=== PATIENT | female | born 1980 | race Caucasian/White ===

== ENCOUNTER 2025-04-02 13:28 | Inpatient (IN) | payer OTHER, SELFPAY ==
[2025-04-02] VITALS (29 sets, daily range): BP systolic 90–113; BP diastolic 56–78; BMI 25.9
[2025-04-02 09:07] LABS: Hematocrit 38.1 % (37.0-47.0); Hemoglobin 12.7 g/dL (12.0-16.0); Mean Corp Hgb Conc. 33.3 g/dL (33.0-37.0); Mean Corpuscular Volume 82.8 fL (81.0-99.0); Nucleated Red Blood Cells % 0 %; Platelet Count 225 10^3/uL (130-400); Red Cell Dist. Width 13.2 % (11.5-14.5)
[2025-04-02 09:27] LABS: ALT (SGPT) 17 U/L (0-35); AST (SGOT) 19 U/L (14-36); Albumin 4.7 g/dl (3.5-5.0); Alkaline Phosphatase 56 U/L (38-126); Blood Urea Nitrogen 10 mg/dl (7-17); Calcium 9.6 mg/dl (8.4-10.2); Carbon Dioxide 23 mmol/L (22-30); Chloride 106 mmol/L (98-107); Glucose 96 mg/dl (70-99); Potassium 4.0 mmol/L (3.5-5.1); Sodium 139 mmol/L (135-145); Total Protein 7.7 g/dl (6.3-8.2); eGFR > 60.00
--- NOTE | 2025-04-02 09:38 | ED.GENMED ---
History of Present Illness
<Casie Pinto PA-C - Last Filed: 04/02/25 15:05>
General
Chief Complaint: Throat Problem
Source: patient
Exam Limitations: none
Time Seen by Provider: 04/02/25 09:02
Nursing documentation reviewed up to this point in time: agreed with
History of Present Illness
History of Present Illness:
see MDM
Phy Exam
<Casie Pinto PA-C - Last Filed: 04/02/25 15:05>
Physical Exam
Physical Exam:
see MDM
Course
<Casie Pinto PA-C - Last Filed: 04/02/25 15:05>
Orders/Labs/Results
Orders:
Orders
04/02/25 08:52
Test Result ONCE
04/02/25 08:56
Complete Blood Count/With Diff Urgent
Comprehensive Metabolic Panel Urgent
HCG, Serum Qualitative Screen Urgent
Comment: Notify provider if positive test present
04/02/25 09:25
CT Neck With Iv Contrast Urgent
Comment: RPA ? VS EPIGLOTTITIS?
Reason For Exam: R neck pain with swallowing, stridorous breathing;
0.9% Sodium Chloride 1000 ml [Nss] 1,000 ml IV BOLUS
Dexamethasone Sod Phosphate [Decadron] 10 mg IV NOW STA
Ketorolac [Toradol] 30 mg IV NOW STA
Morphine Sulfate 2 mg IV NOW STA
Ondansetron Injectable [Zofran] 4 mg IV NOW STA
04/02/25 10:33
Monotest Urgent
04/02/25 11:49
COVID-19 Antigen Urgent
Source: Nasal Swab
Influenza A+B Rapid Molecular Urgent
MARCELO Source: Nasal Swab
Specimen Description:
04/02/25 11:57
Morphine Sulfate 2 mg IV NOW STA
04/02/25 12:05
Ampicillin/Sulbactam 3 G [Unasyn] 3 gm 0.9% Sodium Chloride 100 ml [Nss] 100 ml IV NOW
04/02/25 12:53
Admit/Transfer Patient As Directed
Co-Sign Provider:
Level of Care: Inpatient admission
Assign to:: ICU
Physician / Group: Leroy Glass
Diagnosis: acute right epiglottitis
Reason for Hospitalization: acute right epiglottitis
Expected length of stay greater than two midnights?: Yes
ELOS- Estimated Length of Stay in days: 3
I certify the patient meets the requirements for IP care: Yes
04/02/25 12:54
Code Status As Directed
Resuscitation Status: Full Code
PRN Pain Medication Management As Directed
May give lesser potent ordered pain med per pt: Yes
preference::
Protocol:: Medication orders for pain may be administered in a
manner that supports deferring to patient preference
when the pt is:
- Requesting an ordered lesser potent pain medication.
Least to most potent pain medications are defined
as: acetaminophen < NSAID < tramadol < opioids
(morphine, oxycodone, hydromorphone).
- Requesting a lesser dose of the same medication IF
ORDERED.
- Requesting a less intrusive route of administration
if both routes are prescribed by the provider (PO <
IV).
04/02/25 13:04
Racepinephrine [Vaponefrin Nebs] 0.5 ml INH R NOW STA
04/02/25 Dinner
NPO
Allow oral meds: Yes
Allow clear liquids: No
NPO with Ice Chips: Yes
0.9% Sodium Chloride 1000 ml [Nss] 1,000 ml IV 100 mls/hr
Acetaminophen [Tylenol] 650 mg PO Q4HPRN PRN
Ampicillin/Sulbactam 3 G [Unasyn] 3 gm 0.9% Sodium Chloride 100 ml [Nss] 100 ml IV Q12H
Dexamethasone Sod Phosphate [Decadron] 8 mg IV Q8H
Morphine Sulfate 2 mg IV Q4HPRN PRN
Ondansetron Injectable [Zofran] 4 mg IV Q6HPRN PRN
04/02/25 15:00
Activity As Directed
Activity Level: Ambulate
Vital Signs As Directed
Frequency: Per unit guidelines
Weight As Directed
Frequency: Once
Comment: on admission
DX Deep Vein Thrombosis Video Routine
04/02/25 16:00
Heparin 5,000 units SC Q8
Racepinephrine [Vaponefrin Nebs] 0.5 ml INH Q8
04/03/25 06:00
Complete Blood Count/No Diff IN AM
Abnormal Lab Results
04/02/25
08:56
MPV 10.8 H fL
(7.4-10.4)
Absolute Lymphs (auto) 0.7 L 10^3/uL
(1.2-3.4)
Neutrophils % 77.8 H %
(42.2-75.2)
Lymphocytes % 11.9 L %
(20.5-51.1)
Monocytes % 9.4 H %
(1.7-9.3)
04/02/25 08:56
04/02/25 08:56
Vital Signs
Initial and Last Documented VS:
Initial Vital Signs
Temp Pulse Resp BP Pulse Ox
37.1 C 102 18 111/77 98
04/02/25 08:46 04/02/25 08:46 04/02/25 08:46 04/02/25 08:46 04/02/25 08:46
Last Documented Vital Signs
Temp Pulse Resp BP Pulse Ox
37.7 C 82 16 108/64 96
04/02/25 09:25 04/02/25 12:11 04/02/25 12:11 04/02/25 14:00 04/02/25 14:30
<Raheel Robles MD - Last Filed: 04/02/25 12:11>
Orders/Labs/Results
Orders:
Orders
04/02/25 08:52
Test Result ONCE
04/02/25 08:56
Complete Blood Count/With Diff Urgent
Comprehensive Metabolic Panel Urgent
HCG, Serum Qualitative Screen Urgent
Comment: Notify provider if positive test present
04/02/25 09:25
CT Neck With Iv Contrast Urgent
Comment: RPA ? VS EPIGLOTTITIS?
Reason For Exam: R neck pain with swallowing, stridorous breathing;
0.9% Sodium Chloride 1000 ml [Nss] 1,000 ml IV BOLUS
Dexamethasone Sod Phosphate [Decadron] 10 mg IV NOW STA
Ketorolac [Toradol] 30 mg IV NOW STA
Morphine Sulfate 2 mg IV NOW STA
Ondansetron Injectable [Zofran] 4 mg IV NOW STA
04/02/25 10:33
Monotest Urgent
04/02/25 11:49
COVID-19 Antigen Urgent
Source: Nasal Swab
Influenza A+B Rapid Molecular Urgent
MARCELO Source: Nasal Swab
Specimen Description:
04/02/25 11:57
Morphine Sulfate 2 mg IV NOW STA
04/02/25 12:05
Ampicillin/Sulbactam 3 G [Unasyn] 3 gm 0.9% Sodium Chloride 100 ml [Nss] 100 ml IV NOW
04/02/25 12:53
Admit/Transfer Patient As Directed
Co-Sign Provider:
Level of Care: Inpatient admission
Assign to:: ICU
Physician / Group: Leroy Glass
Diagnosis: acute right epiglottitis
Reason for Hospitalization: acute right epiglottitis
Expected length of stay greater than two midnights?: Yes
ELOS- Estimated Length of Stay in days: 3
I certify the patient meets the requirements for IP care: Yes
04/02/25 12:54
Code Status As Directed
Resuscitation Status: Full Code
PRN Pain Medication Management As Directed
May give lesser potent ordered pain med per pt: Yes
preference::
Protocol:: Medication orders for pain may be administered in a
manner that supports deferring to patient preference
when the pt is:
- Requesting an ordered lesser potent pain medication.
Least to most potent pain medications are defined
as: acetaminophen < NSAID < tramadol < opioids
(morphine, oxycodone, hydromorphone).
- Requesting a lesser dose of the same medication IF
ORDERED.
- Requesting a less intrusive route of administration
if both routes are prescribed by the provider (PO <
IV).
04/02/25 13:04
Racepinephrine [Vaponefrin Nebs] 0.5 ml INH R NOW STA
04/02/25 Dinner
NPO
Allow oral meds: Yes
Allow clear liquids: No
NPO with Ice Chips: Yes
0.9% Sodium Chloride 1000 ml [Nss] 1,000 ml IV 100 mls/hr
Acetaminophen [Tylenol] 650 mg PO Q4HPRN PRN
Ampicillin/Sulbactam 3 G [Unasyn] 3 gm 0.9% Sodium Chloride 100 ml [Nss] 100 ml IV Q12H
Dexamethasone Sod Phosphate [Decadron] 8 mg IV Q8H
Morphine Sulfate 2 mg IV Q4HPRN PRN
Ondansetron Injectable [Zofran] 4 mg IV Q6HPRN PRN
04/02/25 15:00
Activity As Directed
Activity Level: Ambulate
Vital Signs As Directed
Frequency: Per unit guidelines
Weight As Directed
Frequency: Once
Comment: on admission
DX Deep Vein Thrombosis Video Routine
04/02/25 16:00
Heparin 5,000 units SC Q8
Racepinephrine [Vaponefrin Nebs] 0.5 ml INH Q8
04/03/25 06:00
Complete Blood Count/No Diff IN AM
Abnormal Lab Results
04/02/25
08:56
MPV 10.8 H fL
(7.4-10.4)
Absolute Lymphs (auto) 0.7 L 10^3/uL
(1.2-3.4)
Neutrophils % 77.8 H %
(42.2-75.2)
Lymphocytes % 11.9 L %
(20.5-51.1)
Monocytes % 9.4 H %
(1.7-9.3)
04/02/25 08:56
04/02/25 08:56
Vital Signs
Initial and Last Documented VS:
Initial Vital Signs
Temp Pulse Resp BP Pulse Ox
37.1 C 102 18 111/77 98
04/02/25 08:46 04/02/25 08:46 04/02/25 08:46 04/02/25 08:46 04/02/25 08:46
Last Documented Vital Signs
Temp Pulse Resp BP Pulse Ox
37.7 C 82 16 108/64 96
04/02/25 09:25 04/02/25 12:11 04/02/25 12:11 04/02/25 14:00 04/02/25 14:30
<Casie Pinto PA-C - Last Filed: 04/02/25 15:05>
MDM/Problems Addressed
Differential Diagnosis Includes:
see MDM
MDM/Problems Addressed:
Note:
CHIEF COMPLAINT(S)
Sore throat and discomfort.
HISTORY OF PRESENT ILLNESS
The patient is a 44-year-old female who reports experiencing a sore throat and discomfort x 4 days, with worsening symptoms the following 2 days. yesterday She sought treatment at an urgent care facility where she tested negative for covid and
strep. they gave her augmentin and she has had 2 doses without improvement
today her pain is worse, specifically R side of her throat with swallowing and can barely swallow water
pain with R neck movement and palpation and feels her glands are swollen
The patient has not been vaccinated against the flu in recent years.
The patient explains she has been managing the symptoms with [id number] medications such as Tylenol and ibuprofen but has experienced limited relief. She reports no history of epiglottitis but describes symptoms suggestive of a deeper space
infection in the throat.
ALLERGIES
The patient is allergic to InnoPran (Propranolol) which triggers migraines.
PAST MEDICAL HISTORY
The patient has a history of migraines.
IMMUNIZATION HISTORY
The patient reports she has received routine vaccinations in childhood but has not received recent vaccinations for common illnesses such as influenza.
SOCIAL HISTORY
The patient denies smoking.
MEDICATIONS
The patient has taken Tylenol and ibuprofen for her symptoms.
REVIEW OF SYSTEMS
- Respiratory: Denies difficulty breathing.
- Ear, Nose, and Throat: Sore throat predominantly on one side, voice discomfort.
- Neurological: Has a history of migraines.
PHYSICAL EXAM
- General: Examination reveals sore throat predominantly on one side, with no obvious external signs of infection.
- Neck: Swelling or deeper space infection suspected, planned imaging to confirm.
- Respiratory: No visible signs of respiratory distress though breath sounds suggest possible narrowing.
Nursing notes reviewed and vital signs reviewed.
PLAN
1. Obtain a Computed Tomography scan of the neck to assess for signs of a deeper space infection or epiglottitis.
2. Administer intravenous fluids, pain medication, and steroids to alleviate symptoms.
3. Consider administrating a low-dose narcotic, such as morphine, depending on the response to initial treatment.
4. Conduct a nasal swab for the influenza virus.
5. Arrange safe transport for the patient post-treatment.
DIFFERENTIAL DIAGNOSIS
The Differential Diagnosis includes, in no particular order and is not limited to:
1. Influenza
2. Streptococcal pharyngitis
3. Viral pharyngitis
4. Epiglottitis
5. Peritonsillar abscess
6. Retropharyngeal abscess
7. Infectious mononucleosis
8. Bacterial tracheitis
9. Laryngitis
10. Allergic rhinitis
04/02/25 - 11:54
Patient reports persistent headache and sore throat. Imaging indicates a deeper collection or abscess near the epiglottis. The plan includes administering IV antibiotics and steroids to manage the condition while hospitalized. If the situation
doesnt improve, a possible scope procedure may be considered by ENT specialists. i spoke with dr. joyner on callf or ENT and he agreed pt should be admitted.
Patient will receive an additional dose of morphine for pain management along with Tylenol as adjunct therapy. ENT consultation and hospital admission are planned for further evaluation and treatment.
<Casie Pinto PA-C - Last Filed: 04/02/25 15:05>
*Pulse Oximetry
SaO2: 98
Oxygen Mode of Delivery: Room air
Patient hypoxic: no (96)
*Critical Care Note
Total Time (30-74mins, 75-104mins- exclusive of procedures): Not Applicable
ED Attending Note
<Casie Pinto PA-C - Last Filed: 04/02/25 15:05>
-
Portions of this chart may have been created with voice recognition software.� Occasional wrong word or��sound alike� substitutions may have occurred due to the inherent limitations of voice recognition software.
<Raheel Robles MD - Last Filed: 04/02/25 12:11>
ED Attending Note
Patient seen and examined by attending physician: Yes
ED Attending Note:
I have seen and evaluated the patient with a [id number] encounter. I have spoken to the advance practicer provider and involved in the medical history, the physical exam, medical decision making.
Evaluation and management service: agree unless noted differently below.
Results interpretation: agree unless noted differently below.
Focused HPI: 44-year-old female with history as noted presents for evaluation of throat pain. She reports symptoms started and have been progressive since then. She says that she has pain with swallowing. She is also having fevers and
myalgias. She was seen in urgent care initially and was started on antibiotics (Augmentin) but symptoms still worsening which prompted ER visit.
Physical exam: Awake and alert nondistressed. She does have 'hot potato voice' but is protecting her airway. Mild trismus. No tongue elevation, midline uvula with no edema, some slight erythema in the posterior oropharynx but no notably enlarged
tonsils. She has bilateral cervical chain adenopathy.
Medical Decision Makin-year-old female presents with worsening sore throat as described above. She has change in voice, trouble swallowing, trismus. Vitals and exam as above. Labs were sent off including a CBC and CMP which were
unremarkable. Monospot negative. Negative strep yesterday. CT neck shows findings concerning for abscess adjacent to epiglottis. PA discussed case with ENT will plan for steroids, IV antibiotics, admit for continued monitoring. PA discussed
with hospitalist.
Discharge Plan
Departure
Patient Disposition: Admit
Date of Disposition: 04/02/25
Time of Disposition: 11:48
Admit to: Med/Surg
Presentation/result/management discussed w/ accepting MD/DO: Hospitalist
Condition: Fair
Covid-19: Not Applicable
Discharge Problem:
Abscess, peritonsillar, Acute epiglottitis
Interventions
Interventions:
*Risk Screen - Suicide Last Done: 04/02/25 08:46
*ED COVID-19 Vaccine History Last Done: 04/02/25 13:41
ED-EENT Assessment Last Done: 04/02/25 09:46
ED- Pulmonary Assessment Last Done: 04/02/25 09:46
[2025-04-02] MEDS: ZOFRAN 4 MG IV (09:39)
[2025-04-02] MEDS: TORADOL 30 MG IV (09:39)
[2025-04-02] MEDS: NSS 1000 IV ×2 (09:39→15:46)
[2025-04-02] MEDS: DECADRON 10 MG IV (09:40)
[2025-04-02] MEDS: MORPHINE SULFATE 2 MG IV ×3 (09:40→19:38)
[2025-04-02 09:45] LABS: HCG, Serum Qualitative Screen Negative
--- NOTE | 2025-04-02 12:04 | W.PN.UPDATE ---
Addendum entered and electronically signed by Leroy Glass MD 04/02/25 12:45:
Correction:
DVT Px: SQH
Full code
<del>IP</del> <del>MS</del> ==> ICU per ENT Dr Shabazz
Original Note:
Update Note
Progress Note Update
This note serves as an addendum to the H&P by postulant CORNELIO�
Kristyn Petrona
HPI
44F sen at ER
- contact exposure to Daughter with URI
- sore throat and swollen neck glands especially Rt side and tender
- seen at [facility] yesterday on Tx PO augmentin
- reports fever , myalgia, RÍOS
- also dysphagia of liquids
Vital Signs
Temp Pulse Resp BP Pulse Ox
99.9 F 87 16 103/71 97
04/02/25 09:25 04/02/25 10:31 04/02/25 10:31 04/02/25 10:31 04/02/25 10:31
PE
Gen: looks mildly anguish
Neck: swollen neck glands especially Rt side and tender
Lungs: CTA
Cor:No ST, S1 s2
Abdomen:�soft NT
FRACTIONATION SUPERVISOR:NFND
MS:no edema
Psych: anxious
Relevant Data
04/02/25
08:56
WBC 5.9
Neutrophils % 77.8 H
Creatinine 0.7
eGFR > 60.00
HCG, Qual Negative
CT Neck With Iv Contrast
1. 15 x 14 x 12 mm low attenuation focus inferior to the epiglottis abutting the right aryepiglottic fold suspicious for abscess. Associated effacement/stranding of the right parapharyngeal fat with several mildly enlarged/reactive cervical chain
lymph nodes.
2. Additional findings above.
No Prior hospitalist admission:
ASSESSMENT & PLAN
CT suspicious for right aryepiglottic abscess - but acute R epiglottitis but no abscess per ENT
- sore throat, dysphagia and constitutional symptoms
- Nl WCC
- afebrile
- NEG HCG
- Agree with IV Unasyn
- IV Decadron 8mg q8 3 doses
- IV NS
- Racemic epinephrine per ENT
- NPO for now
- Trend T, WCC
- ENT consulted
DVT Px: SQH
Full code
IP MS
--- NOTE | 2025-04-02 12:05 | HPS.HSE ---
Family Physician
-
Family Physician: HECTOR MACDONALD DO
Chief Complaint
-
sore throat
History of Present Illness
Patient is a 44-year-old female with past medical history significant for migraines who presented to [facility] ED for evaluation of sore throat x3 days. Patient reports she started feeling unwell on Wednesday and has progressively gotten worse. She reports
pain has worsened, difficulty swallowing and hoarse voice. She did seek evaluation and treatment at Urgent Care yesterday where she was noted to negative for strep or Covid. They prescribed Augmentin, she took 2 dose and did not have any
improvement. She reports this morning attempting to sip water caused her to choke. Patient denies fever, chills, cough, shortness of breath, chest pain, nausea, vomiting, constipation, diarrhea or urinary symptoms.
Medical History
Past Medical History
Past Medical History: Reports Other
Additional Past Medical History:
migraines
endometriosis
PCOS
Past Surgical History: Reports Other
Additional Past Surgical History:
sinus surgery
cholecystectomy
Social History
Tobacco: Non-smoker
Alcohol: None
Drug: None
Personal:
Living: With Family
Employment: Not Employed
Family History
Family History: Not pertinent
Allergies / Home Medications
Allergies reflects when Allergies were last updated in [facility].
Home Medications with original date entered in [facility]
Allergy/Medication List:
Allergies
Allergy/AdvReac Type Severity Reaction Status Date / Time
azithromycin (From Zithromax Allergy Unknown Verified 04/02/25 08:46
Z-Papo)
sumatriptan (From Imitrex) Allergy Unknown Verified 04/02/25 08:46
Home Medications
amoxicillin 875 mg-potassium clavulanate 125 mg tablet 1 tab PO BID 04/02/25
pseudoephedrine-ibuprofen 30 mg-200 mg capsule (Advil Cold and Sinus) 1 cap PO BIDPRN PRN mild pain 04/02/25
Review of Systems
-
History Source: Patient
Constitutional: Denies Fever or Chills
EENT: Reports Sore Throat and Other (difficulty swallowing, hoarse voice )
Respiratory: Denies Cough or Trouble Breathing
Cardiac: Denies Chest Pain, Diaphoresis, Palpitations or Syncope
Abdomen/GI: Denies Abdominal Pain, Nausea, Vomiting, Diarrhea or Constipated
: Denies Dysuria, Frequency or Urgency
Musculoskeletal: Denies Joint Pain, Joint Swelling or Edema
Skin: Denies Rash
Neurological: Denies Dizzy, Headache, Weakness or Numbness
Physical Exam
Vital Signs
Vital Signs
Temp Pulse Resp BP Pulse Ox
99.9 F 87 16 103/71 97
04/02/25 09:25 04/02/25 10:31 04/02/25 10:31 04/02/25 10:31 04/02/25 10:31
Physical Exam
General: Well Developed, Well Nourished and Pain
HEENT: NormoCephalic, Moist mucous membranes, Atraumatic, Nose Appears Normal, Ears Appear Normal and Other (right tenderness on neck with palpation, hoarse voice)
Respiratory: Clear and Non Labored Respirations
Cardiac: S1/S2 and Regular Rhythm; No Murmur, Rub or Gallop
Breast: Deferred by me
GI: Soft, Non Tender, Non Distended and Normal Bowel Sounds; No Organomegaly
Rectal: Deferred by Provider
Genito-urinary: Deferred by me
Musculoskeletal: No Clubbing, No Cyanosis and No Edema
Skin: Warm and IV/Catheter Site; No Rash
Neuro: Awake, AO x 3 and Nonfocal/grossly intact
Psych: Calm and Intact Judgment/Insight
Laboratory Results
-
04/02/25 08:56
04/02/25 08:56
Laboratory Results
Total Bilirubin 0.7 mg/dl (0.2-1.3) 04/02/25 08:56
AST 19 U/L (14-36) 04/02/25 08:56
ALT 17 U/L (0-35) 04/02/25 08:56
Alkaline Phosphatase 56 U/L (38-126) 04/02/25 08:56
Data Reviewed
-
CT Scan: Report Reviewed by me (Neck CT: 1. 15 x 14 x 12 mm low attenuation focus inferior to the epiglottis abutting the right aryepiglottic fold suspicious for abscess. Associated effacement/stranding of the right parapharyngeal fat with several
mildly enlarged/reactive cervical chain lymph nodes. 2. Additional findings abo)
Lab Data: Labs Reviewed by me
Impression/Plan
-
IMPRESSION/PLAN:
#right throat pain, hoarse voice, difficulty swallowing 2/2 right aryepiglottic abscess vs. acute right epiglottitis
Neck CT: 1. 15 x 14 x 12 mm low attenuation focus inferior to the epiglottis abutting the right aryepiglottic fold suspicious for abscess. Associated effacement/stranding of the right parapharyngeal fat
with several mildly enlarged/reactive cervical chain lymph nodes.
2. Additional findings above.
- Admit to ICU for close monitoring
- Consult ENT
- IV Unasyn
- IV Decadron q8 x3 doses
- IVF NSS 80cc/hr
- Racemic Epinephrine
- NPO
Code status: full code
DVT prophylaxis: Heparin sq
[2025-04-02 12:20] LABS: COVID-19 Antigen Negative (Negative)
--- NOTE | 2025-04-02 12:25 | W.PN.ENT ---
Today's Communication
-
as above
Impression / Plan
-
Airway patent but she has acute epiglottis, no abscess.
Agree with Unasyn but would also add Decadron 8mg IV q 8 hours for 3 doses, as well as recemic epi treatments, q8 hours. 24 hour pulse oximetry in ICU.
NPO overnight in case airway intervention is necessary but I feel this will be unlikely.
Subjective Data
-
Pt seen and full consult dictated
Objective Data
-
Vital Signs
Temp Pulse Resp BP Pulse Ox
99.9 F 82 16 103/71 98
04/02/25 09:25 04/02/25 12:11 04/02/25 12:11 04/02/25 10:31 04/02/25 12:11
Lab Results
04/02/25 08:56
04/02/25 08:56
Calcium 9.6 mg/dl (8.4-10.2) 04/02/25 08:56
Total Bilirubin 0.7 mg/dl (0.2-1.3) 04/02/25 08:56
AST 19 U/L (14-36) 04/02/25 08:56
ALT 17 U/L (0-35) 04/02/25 08:56
Alkaline Phosphatase 56 U/L (38-126) 04/02/25 08:56
Physical Exam
-
Laryngoscopy reveals findings c/w acute epiglottis
[2025-04-02] MEDS: UNASYN IV ×2 (12:56→17:41)
--- NOTE | 2025-04-02 13:27 | EDCM ---
CM reviewed chart and met with pt and bedside in ED. Lives with her , split level home, [address], 6 steps to half bath, 12 steps total to bedroom and full bath.
Independent in ADLs, personal care and ambulation at baseline.
No hx VN or SNF
PCP: Uriel Forrest
Pharmacy: [facility]
Anticipate discharge home, CM will continue to follow for all discharge planning needs.
[2025-04-02] MEDS: VAPONEFRIN NEBS 0.5 ML INH ×3 (13:45→23:55)
--- NOTE | 2025-04-02 14:58 | CON.INTV ---
Consultation
Consultation Request
Date/Time Consultation Requested: 04/02/25, 2:50pm
Date/Time Consultation Performed: 04/02/25, 3:30pm
Reason for Consultation: acute epiglottitis airway mgmt
Medical History
-
Chief Complaint: acute epiglottitis
History of Present Illness:
Patient is a 44-year-old F with no significant PMH who presents with sore throat and flu�like symptoms c/b acute worsening of dysphagia & dyspnea.
Patient reports that roughly 5 days ago she began to experience right sided rhinorrhea, which progressed over the following days to full body myalgias and fever/flulike symptoms, accompanied by sore throat and hoarse voice. States that her daughter
at home had a recent URI. Given worsening of sore throat, she presented to urgent care facility, where she was given augmentin. Negative for strep and COVID at that time. Patient took 2 doses of augmentin without improvement in symptoms; over the
last 1-2 days patient became unable to swallow even water. Had retching/vomiting episodes brought on by choking secondary to this. Manilla worsening pain in right side of neck/throat. Was unable to speak due to dyspnea. Endorses is headache.
Patient has not received recent flu vaccinations but received full suite of childhood vaccinations. No history of smoking.
On presentation to the ED, patient was afebrile, normotensive, without tachycardia. Satting 98% on room air. WBC not elevated (5.9), but with slightly elevated neutrophils (77.8%). Other labs unremarkable. Monospot was negative. Flu A/B was
negative. Exam in ED demonstrated swollen right sided lymph nodes in neck. CT neck demonstrated findings concerning for abscess adjacent to epiglottis. Seen by ENT, laryngoscopy revealed findings consistent with acute epiglottitis. Airway was
patent.
Patient was started on Unasyn 3g q6h, dexamethasone 8mg IV q8h, racemic epi 0.5 mL q8h. Admitted to ICU for monitoring of airway status over next 24 hours.
On exam in the ICU, patient states that she is feeling much better than when she presented. Still has hoarse voice, but feels that she can speak/breathe easier. Still has some secretions in back of throat with some difficulty swallowing. Manilla
better immediately following the racemic epi treatment, with worsening of symptoms in the time following. Denies ever having cough. States that she has been having excessive burping. Mom, partner, daughter at bedside.
Past Medical History
Past Medical History: Other (migraines )
Past Surgical History: None
Social History
Tobacco: Non-smoker
Living: With Family
Family History
Family History: Reviewed & Not Pertinent
Allergies / Home Medications
Allergies
Allergy/AdvReac Type Severity Reaction Status Date / Time
azithromycin (From Zithromax Allergy Unknown Verified 04/02/25 08:46
Z-Papo)
sumatriptan (From Imitrex) Allergy Unknown Verified 04/02/25 08:46
Home Medications
�Medication �Instructions �Recorded �Confirmed �Last Taken �Type
amoxicillin 875 mg-potassium 1 tab PO BID Infection 04/02/25 04/02/25 04/01/25 History
clavulanate 125 mg tablet
pseudoephedrine-ibuprofen 30 1 cap PO BIDPRN PRN mild pain 04/02/25 04/02/25 04/01/25 History
mg-200 mg capsule (Advil Cold and
Sinus)
Review of Systems
-
History Source: Patient
Constitutional: Fever and Fatigue
EENT: Sore Throat and Other (Dysphagia with liquids)
Respiratory: Cough (Denies) and Trouble Breathing (Improving)
Abdomen/GI: Vomiting (Prior to admission)
Neuro: Headache
Hematologic/Lymphatic: Swollen Glands (Right-sided neck)
Vitals / Labs / Diagnostic Testing
Vital Signs
Temp Pulse Resp BP Pulse Ox
99.9 F 82 16 108/64 96
04/02/25 09:25 04/02/25 12:11 04/02/25 12:11 04/02/25 14:00 09/29/25 14:30
Lab Data
04/02/25 08:56
04/02/25 08:56
Microbiology
04/02/25 11:49 Nasal Swab Influenza Types A & B (GELY) - Final
Negative for Influenza A & B, NAAT
Negative results must be combined with clinical observations
and patient history.
Nucleic Acid Amplification test (NAAT)performed on the
[employer] platform.
Diagnostic Testing:
Physical Exam
-
HEENT: Normocephalic, Anicteric, Moist Mucous Membranes and Other (Some erythema right sided back of throat; tonsils not swollen, no tonsillar exudate)
Cardiovascular: Regular Rhythm
Respiratory: Clear, Non-Labored Respirations and Other (No accessory muscle use; no stridor)
GI: Non Distended
Neurology: AO x 3
Skin: Warm, Dry and Good Color
General: Comfortable (Appears relatively comfortable; no tripoding; able to speak in full sentences, with hoarse voice)
Assessment
-
Patient is a 44-year-old F with no significant PMH who presents with sore throat and flu�like symptoms c/b acute worsening of dysphagia & dyspnea, found to have acute epiglottitis. Admitted to ICU for airway monitoring over next 24 hours. Plan as
below.
#Acute epiglottitis
Patient found to have acute epiglottitis confirmed with the CT scan of neck and direct laryngoscopy (04/02). Negative for strep, mono, COVID, flu. Given URI in close contact, flulike prodrome with rhinorrhea, and lack of response to augmentin, most
likely etiology of epiglottitis is viral (RSV). Will continue Unasyn for empiric coverage in case of bacterial component; low suspicion for MRSA given community acquired infection and otherwise healthy patient with limited hx of hospital admission.
- Continue IV amp-sulbactam 3g q6h
- Continue dexamethasone 8mg IV q8h; total of 3 doses
- Continue racemic epinephrine 0.5 mL q8h over next 24 hrs
- Closely monitor airway status, any symptoms of worsening dyspnea/stridor
- Low threshold for intubation with minimal worsening; to consult anesthesia if intubating
- PRN zofran for nausea
- PRN analgesia: acetaminophen 650mg q4h for min-moderate, morphine 2mg q4h for severe
#Chronic
- Migraines: NTD
#Global
- DVT PPx: Subq heparin
- Diet: NPO over next 24 hours
- Code: Full
- Dispo: Lives at home with family; may downgrade to floors after 24 hours if airway remains patent
Data Reviewed
-
CT Scan: Image personally visualized and interpreted and Report reviewed by me
Medical Tests (Nuc Med, Echo etc): Report reviewed by me
Labs: Labs reviewed by me
Critical Care Time (in minutes): 40
Total Time Spent with Patient (in minutes): 15
--- NOTE | 2025-04-02 15:04 | PTCARENOTE ---
Pt arrived from the ED via stretcher, monitored. She was able to transfer to the bed independently. Gait steady. Left AC#20g protective catheter flushed and patent. She is c/o sore throat worse when talking, swallowing, and coughing. She at times
will get pain radiating to her right ear and then build up to a headache. Lungs CTA, no stridor appreciated with auscultation. She also stated her throat feels so much better bu still sore. She rated her throat discomfort a 4 out of 10 and
manageable. She was oriented to the unit and the plan of monitoring her pulse oximetry throughout the night. She understands that she is to report and difficulty breathing immediately. Safe environment maintained.
[2025-04-02 15:42] LABS: Glucose - Point of Care 128 mg/dl (70-99)
[2025-04-02 16:21] LABS: INR 1.12; PT 14.7 Sec (11.4-14.6)
[2025-04-02 16:22] LABS: APTT 28.8 Sec (23.4-35.0)
[2025-04-02] MEDS: HEPARIN 5000 UNITS SC ×2 (16:43→23:59)
[2025-04-02] MEDS: OFIRMEV 100 IV (16:50)
[2025-04-02 16:59] LABS: Magnesium 2.1 mg/dl (1.6-2.3)
[2025-04-02] MEDS: DECADRON 8 MG IV (17:41)
--- NOTE | 2025-04-02 22:34 | PTCARENOTE ---
Patient aao x3 since start of shift, affect pleasant. C/o pain 6/10 at start of shift r/to returning left sided headache. PRN morphine administered per order with positive results noted. Patient standby assist x1 to bathroom at start of shift r/to
wires, gait steady. Patient urinated large amount of yellow urine at that time. SR on the monitor with monomorphic PVCs at start of shift, recently noted to have PVCs in trigeminy. No edema noted, positive pulses throughout. LS CTA throughout, pox
98% on RA, denies sob, no seymour noted. Patient verbalizes understanding to call with any changes in swallowing or discomfort to throat. Patient continues with NS at 100ml/hr to left ac. Call multani within reach, will continue to monitor patient closely.
[2025-04-03] VITALS (38 sets, daily range): BP systolic 87–127; BP diastolic 52–90; BMI 26.2
[2025-04-03 00:33] LABS: Glucose - Point of Care 151 mg/dl (70-99)
--- NOTE | 2025-04-03 00:45 | PTCARENOTE ---
Patient c/o sore 'irritated throat' post neb tx. RN discussed with Kellee MEJIA, ROBERTO discussing medications with pharmacy, will enter order when able. Patient remains aao x3, pox 99% on RA, RR wnl. NSS at 100ml/hr continues through left ac 20g
with Abt PB. Midnight BG 151, next Decadron at 0200. Call multani within reach, will continue to monitor patient closely.
[2025-04-03] MEDS: DECADRON 8 MG IV (01:05)
[2025-04-03] MEDS: CHLORASEPTIC/SORE THROAT SPRAY 1 SPRAY PO ×3 (01:12→08:22)
[2025-04-03] MEDS: UNASYN IV ×4 (05:38→17:51)
[2025-04-03 06:00] LABS: Hematocrit 34.9 % (37.0-47.0); Hemoglobin 11.8 g/dL (12.0-16.0); Mean Corp Hgb Conc. 33.8 g/dL (33.0-37.0); Mean Corpuscular Volume 82.9 fL (81.0-99.0); Platelet Count 216 10^3/uL (130-400); Red Cell Dist. Width 13.1 % (11.5-14.5)
--- NOTE | 2025-04-03 06:09 | PTCARENOTE ---
Patient states she has been able to tolerate ice chips more throughout the night however feels that when the steroids are wearing off, it is becoming increasingly uncomfortable and returning to difficult. Pox has remained high 90's throughout the
night on ra. Call multani within reach, will continue to monitor.
[2025-04-03 06:27] LABS: Blood Urea Nitrogen 13 mg/dl (7-17); Calcium 8.9 mg/dl (8.4-10.2); Carbon Dioxide 20 mmol/L (22-30); Chloride 112 mmol/L (98-107); Estimated Creatinine Clearance 102 ml/min; Glucose 123 mg/dl (70-99); Magnesium 2.2 mg/dl (1.6-2.3); Potassium 4.1 mmol/L (3.5-5.1); Sodium 140 mmol/L (135-145); eGFR > 60.00
[2025-04-03] MEDS: VAPONEFRIN NEBS 0.5 ML INH ×2 (07:35→13:34)
--- NOTE | 2025-04-03 08:00 | PTCARENOTE ---
Assumed care of patient at 0700. Admitted with Epiglottitis. Patient reports 4/10 pain in R side of neck. Breath sounds clear, VSS on RA. Remains NPO except ice chips due to pain with swallowing. Able to ambulate to bathroom and chair with standby
assistance.
--- NOTE | 2025-04-03 08:07 | W.PN.INTV ---
Today's Communication / Plan
Recommendations
- Await ENT recs
- Potential downgrade to IMU today
- Continue unasyn
- IV dexamethasone 6mg q6h
- Racemic epi PRN
- Continue IVF
- Chips/sips until ENT eval
- Add ketorolac PRN for pain mgmt
Assessment
-
Patient is a 44-year-old F with no significant PMH who presents with sore throat and flu�like symptoms c/b acute worsening of dysphagia & dyspnea, found to have acute epiglottitis. Admitted to ICU for airway monitoring. Plan as below.
#Acute epiglottitis
Patient found to have acute epiglottitis confirmed with the CT scan of neck and direct laryngoscopy (04/02). Negative for strep, mono, COVID, flu. Given URI in close contact, flulike prodrome with rhinorrhea, and lack of response to augmentin, most
likely etiology of epiglottitis is viral (RSV). Will continue Unasyn for empiric coverage in case of bacterial component; low suspicion for MRSA given community acquired infection and otherwise healthy patient with limited hx of hospital admission.
Today: AVSS, WBC wnl.
- Continue IV amp-sulbactam 3g q6h for 7 day course (04/02-)
- Convert dexamethasone to 6mg IV q6hr
- Convert racemic epinephrine 0.5 mL to PRN
- ENT to evaluate today, appreciate recs
- Closely monitor airway status, any symptoms of worsening dyspnea/stridor
- PRN zofran for nausea
- PRN analgesia: acetaminophen 650mg q4h for min-moderate, morphine 2mg q4h for severe, IV ketorolac 15 q6hr; phenol spray PRN
#Chronic
- Migraines: NTD
#Global
- DVT PPx: Subq heparin
- Diet: NPO, allow sips & chips until ENT eval; IVF
- Code: Full
- Dispo: Lives at home with family; may downgrade to IMU this afternoon, pending ENT recs
Subjective Dataa
Subjective Data
Date of Service:
Date of Service: April 03, 2025
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
Subjective:
Patient awake, sitting up in bed, conversant. Denies any trouble breathing. Primary complaint is pain in throat and trouble swallowing. States that 1 to 2 hours after receiving steroids, she feels good and is able to swallow ice chips. At the
3-4-hour cris, she feels that she can no longer swallow ice chips and begins to have pain in the throat again. She states that the racemic epi inhalation makes her throat more uncomfortable, does not seem to help with improving swallowing. This
morning states her pain is a 4�5/10 in her throat and 3/10 on the right side of her neck. Voice is still somewhat hoarse/raspy. Has been using saliva suction to remove excess saliva in her mouth that she is unable to swallow.
Review of Systems
General: Pain
HEENT: Oral/Throat Pain and Dysphagia
Cardiopulmonary: Other (Denies dyspnea)
GI: Abdominal Pain (None)
Neuro: Headache (None)
Objective Data
Data Reviewed
Vital Signs / I&O / Oxygen:
Vital Signs
Temp Pulse Resp BP Pulse Ox
97.8 F 92 18 96/70 98
04/03/25 03:11 04/03/25 07:35 04/03/25 07:35 04/03/25 06:00 04/03/25 07:35
Intake and Output
04/02/25 04/03/25 04/04/25
06:59 06:59 06:59
Intake Total 1959 / 1959
Output Total 300 / 300
Balance 1660 / 1660
SaO2 98
Physical Exam
General: Comfortable (Appears comfortable)
HEENT: Moist Mucous Membranes and Other ( speaks in raspy voice; utilizing saliva suction; some swelling of right neck LN)
Cardiovascular: Regular Rhythm
Respiratory: Clear, Non-Labored Respirations and Other (No stridor, no wheezing)
GI: Non Distended
Neurology: AO x 3
Skin: Warm, Dry and Good Color
Labs/Micro/Reports
Lab Data
04/03/25 05:46
04/03/25 05:46
Laboratory Results
04/02/25
15:58
PT 14.7 H
INR 1.12
APTT 28.8
Microbiology
04/02/25 11:49 Nasal Swab Influenza Types A & B (GELY) - Final
Negative for Influenza A & B, NAAT
Negative results must be combined with clinical observations
and patient history.
Nucleic Acid Amplification test (NAAT)performed on the
[employer] platform.
[2025-04-03] MEDS: HEPARIN 5000 UNITS SC ×2 (08:19→16:05)
--- NOTE | 2025-04-03 08:22 | CON.ID ---
Consultation
-
Date/Time Consultation Requested: 04/03/25 6:47
Date/Time Consultation Performed: 04/03/25 8:22
Requesting Provider: Dr Grove
Performing Provider: Dr Hansen
Reason for Consultation: Acute epiglottitis
Chief Complaint / Past History
Chief Complaint
sore throat
History of Present Illness
Ms Gary is a 44 year old female without significant past medical history who presented here for a 3 day history of progressive sore throat, difficulty swallowing and hoarse voice. She was seen at urgent care the day before admission: Strep
and Covid swabs were negative, she was prescribed augmentin and took two doses without improvement. The day of admission she attempted to drink water and choked prompting her to present to the ER. Also reports headache. Daughter had recent URI.
Patient denies fever, chills, cough, shortness of breath, chest pain, nausea, vomiting, constipation, diarrhea or urinary symptoms.
Since arrival here she has been afebrile, bp hypotensive, wbc count initially 5.9 now 8.3, hgb 11.8, plt 216, L shift was present, na 140, cr 0.5, LFTS wnl, monoscreen and covid both negative, influenza negative 04/02 CT neck with IV contrast: 15 x
14 x 12 mm low attenuation focus inferior to the epiglottis abutting the right aryepiglottic fold suspicious for abscess. Associated effacement/stranding of the right parapharyngeal fat with several mildly enlarged/reactive cervical chain lymph
nodes, she was seen by ENT who assessed her as having ecute epiglottitis, she underwent laryngoscopy which was confirmatory, there was no abscess visualized, she was started on unasyn and decadron as well as racemic epi treatments. She was made NPO
in case intervention becomes necessary. Since arrival she reports notable improvement particularly after the racemic epi. She is able to speak and breath more easily though she continues with some difficulty swallowing. No stridor. ID is
consulted for assistance with management.
Past History
Additional Past Medical History:
migraines
endometriosis
PCOS
Additional Past Surgical History:
sinus surgery
cholecystectomy
Allergy History:
sumatriptan (From Imitrex) Allergy (Verified 04/02/25 15:54)
fainting from shot
azithromycin (From Zithromax Z-Papo) Adverse Reaction (Verified 04/02/25 15:54)
abd issues
Medications Reviewed: Yes
Social History
Tobacco: Non-Smoker
Living: With Family
Family History
Family History: Not Pertinent
Review of Systems
Review of Systems
Review of systems negative except as listed above.
Vital Signs
Temp Pulse Resp BP Pulse Ox
97.8 F 92 18 96/70 98
04/03/25 03:11 04/03/25 07:35 04/03/25 07:35 04/03/25 06:00 04/03/25 07:35
Physical Exam
Physical Exam
Constitutional: No Acute Distress
Pharynx: Other (quite tender over the right neck, no swelling, no palpable lymphnodes)
Cardiovascular: Regular Rate and S1/S2; Negative Murmur or Rub
Pulmonary: Clear and Symmetric; Negative Wheezes, Rales or Rhonchi
Gastrointestinal: Soft, Non Tender, Non Distended and Normal Bowel Sounds
Skin: Warm and Dry; Negative Rash or Jaundice
Lab / Diagnostic Study Results
04/03/25 05:46
04/03/25 05:46
Abs Immat Gran (auto) 0.0 10^3/uL (0-0.05) 04/02/25 08:56
Absolute Neuts (auto) 4.6 10^3/uL (1.4-6.5) 04/02/25 08:56
Absolute Lymphs (auto) 0.7 10^3/uL (1.2-3.4) L 04/02/25 08:56
Absolute Monos (auto) 0.6 10^3/uL (0.1-0.6) 04/02/25 08:56
Absolute Basos (auto) 0.0 10^3/uL (0-0.2) 04/02/25 08:56
Immature Gran % 0.3 % (0-0.5) 04/02/25 08:56
Neutrophils % 77.8 % (42.2-75.2) H 04/02/25 08:56
Lymphocytes % 11.9 % (20.5-51.1) L 04/02/25 08:56
Monocytes % 9.4 % (1.7-9.3) H 04/02/25 08:56
Eosinophils % 0.3 % (0-6) 04/02/25 08:56
Basophils % 0.3 % (0-2) 04/02/25 08:56
PT 14.7 Sec (11.4-14.6) H 04/02/25 15:58
INR 1.12 04/02/25 15:58
Microbiology Results
Micro:
04/02/25 11:49 Influenza Types A & B (GELY) - Final
Nasal Swab Negative for Influenza A & B, NAAT
Negative results must be combined with clinical observations
and patient history.
Nucleic Acid Amplification test (NAAT)performed on the
[employer] platform.
Assessment / Plan
Acute Epiglottitis without abscess
- agree with present management - unasyn, steroids and racemic epinephrine
- steroid management per ENT
- IV antibiotics while she has significant dysphagia; eventual transition to orals.
--- NOTE | 2025-04-03 08:59 | W.PN.HOSP.TC ---
Today's Communication/Plan
-
Blood culture
IVFIV steroid
IV Abx
can do oral sips for now
Assessment / Plan
Assessment / Plan
Physical Exam
General: Well Developed, Well Nourished, not in distress
HEENT: NormoCephalic, Moist mucous membranes, Atraumatic.
Respiratory: Clear and Non Labored Respirations
Cardiac: S1/S2 and Regular Rhythm.
GI: Soft, Non Tender, Non Distended and Normal Bowel Sounds.
Genito-urinary: No Bellamy.
Musculoskeletal: No Clubbing, No Cyanosis and No Edema
Skin: Warm.
Neuro: Awake, AO x 3 and Nonfocal/grossly intact
Psych: Calm and Intact Judgment/Insight
A/P:
# Acute Epiglottitis.
causing Sepsis POA with tachycardia, hypotension, elevated neutrophil, low lymphocytes, could be viral in origin
She is feeling better, but still difficulty swallowing at times but overall much better
c/w IV steroid
c/w IV Unasyn
Reportedly had negative strep test in urgent care
Negative flu & COVID
Will do blood culture
Afebrile this morning
c/w supportive care
Appreciate ICU/ENT/ID help
# Simus tachycardia, reactive
# Hypotension, septic shock
No indication for pressure support medications
will keep IVF
Total time spent to see the patient, examine the patient, review data lab result, discuss treatment plan with patient, nursing staff around 55 minutes
Anticipated Discharge: 24 - 48 hours
Subjective/Interval History
-
Date of Service: April 03, 2025
She feels better but still struggle with swallowing at times
No chest pain
No fever
Objective Data
-
Labs:
Laboratory Results
04/03/25
05:46
WBC 8.3
Hgb 11.8 L
Hct 34.9 L
Plt Count 216
Sodium 140
Potassium 4.1
Chloride 112 H
Carbon Dioxide 20 L
BUN 13
Creatinine 0.5 L
Glucose 123 H
Calcium 8.9
Vital Signs:
Vital Signs
Temp Pulse Resp BP Pulse Ox
97.5 F 92 18 96/70 98
04/03/25 08:24 04/03/25 07:35 04/03/25 07:35 04/03/25 06:00 04/03/25 07:35
I&O
04/02/25 04/03/25 04/04/25
06:59 06:59 06:59
Intake Total 1959 / 1959
Output Total 300 / 300
Balance 1660 / 1660
[2025-04-03] MEDS: DECADRON 6 MG IV ×3 (10:05→21:56)
[2025-04-03] MEDS: TORADOL 15 MG IV ×2 (11:25→21:57)
[2025-04-03] MEDS: NSS 1000 IV ×3 (11:50→17:50)
--- NOTE | 2025-04-03 12:00 | PTCARENOTE ---
Patient reports improving pain level of R neck. Ambulated around unit without complications. Upgraded to liquid diet, tolerating well.
--- NOTE | 2025-04-03 12:32 | W.PN.ENT ---
Today's Communication
-
as above
Impression / Plan
-
Greatly improved.
The risk of airway obstruction is very small now that she has shown the improvement that she has.
She may begin a normal or a soft diet.
From my point of view she can leave the ICU for the floor.
Subjective Data
-
The patient feels much better today/ there is a globus sensation but no SOB
Objective Data
-
Vital Signs
Temp Pulse Resp BP Pulse Ox
97.9 F 89 18 102/62 98
04/03/25 11:23 04/03/25 10:30 04/03/25 10:30 04/03/25 10:00 04/03/25 10:30
Intake & Output
04/02/25 04/03/25 04/04/25
06:59 06:59 06:59
Intake:
IV fluids (Total) 1500 / 1600 750 / 750
Nss 1,000 ml @ 150 mls/hr IV . 1500 / 1600 750 / 750
[id number] [facility] Rx#:[id number]
IV piggybacks 460 / 460
Output:
Urine, Voided 300 / 300 450 / 450
Other:
Number of approximated LARGE 1
amounts of urine
Lab Results
04/03/25 05:46
04/03/25 05:46
PT 14.7 Sec (11.4-14.6) H 04/02/25 15:58
INR 1.12 04/02/25 15:58
APTT 28.8 Sec (23.4-35.0) 04/02/25 15:58
Calcium 8.9 mg/dl (8.4-10.2) 04/03/25 05:46
Phosphorus 3.0 mg/dl (2.5-4.5) 04/02/25 08:56
Magnesium 2.2 mg/dl (1.6-2.3) 04/03/25 05:46
Total Bilirubin 0.7 mg/dl (0.2-1.3) 04/02/25 08:56
AST 19 U/L (14-36) 04/02/25 08:56
ALT 17 U/L (0-35) 04/02/25 08:56
Alkaline Phosphatase 56 U/L (38-126) 04/02/25 08:56
Physical Exam
-
Breathing quietly and comfortably
--- NOTE | 2025-04-03 14:00 | PTCARENOTE ---
Patient noted to have some localized redness on collar region of neck. Denies itching, change in pain level or ability to manage secretions. Patient resting comfortably in bed, call multani within reach and use encouraged. See skin assessment
intervention.
--- NOTE | 2025-04-03 14:15 | CM ---
Improving, able to begin full liquid diet, IV/AB and IV/steroids continue. Discharge POC: Anticipate home with no needs.
[2025-04-03] MEDS: TYLENOL ORAL SOLUTION 650 MG PO (17:51)
--- NOTE | 2025-04-03 20:00 | PTCARENOTE ---
Patient received in bed, AAOx3, rates throat pain 09/11. NSR, trace left upper extremity edema noted. Lungs clear on room air. Abdomen soft. Voiding yellow urine. #20 g in LAC flushed and patent. #20 g in right hand with IVF infusing as
ordered. Plan of care discussed.
[2025-04-03] MEDS: TUMS CHEWABLE TABLET 200 MG PO (22:19)
--- NOTE | 2025-04-03 22:41 | PTCARENOTE ---
Patient complaining of indigestion, notified house ROBERTO, order received
[2025-04-04] VITALS (12 sets, daily range): BP systolic 103–128; BP diastolic 68–94
[2025-04-04] MEDS: UNASYN IV ×4 (00:10→18:14)
[2025-04-04] MEDS: HEPARIN 5000 UNITS SC ×3 (00:11→15:28)
[2025-04-04] MEDS: NSS 1000 IV (02:44)
[2025-04-04] MEDS: DECADRON 6 MG IV (04:18)
[2025-04-04] MEDS: TUMS CHEWABLE TABLET 200 MG PO ×2 (04:18→18:16)
[2025-04-04] MEDS: VAPONEFRIN NEBS 0.5 ML INH (04:51)
[2025-04-04 05:01] LABS: Hematocrit 33.6 % (37.0-47.0); Hemoglobin 11.2 g/dL (12.0-16.0); Mean Corp Hgb Conc. 33.3 g/dL (33.0-37.0); Mean Corpuscular Volume 82.4 fL (81.0-99.0); Platelet Count 236 10^3/uL (130-400); Red Cell Dist. Width 13.2 % (11.5-14.5)
[2025-04-04 05:26] LABS: Blood Urea Nitrogen 14 mg/dl (7-17); Calcium 8.9 mg/dl (8.4-10.2); Carbon Dioxide 21 mmol/L (22-30); Chloride 112 mmol/L (98-107); Estimated Creatinine Clearance 103 ml/min; Glucose 140 mg/dl (70-99); Potassium 4.4 mmol/L (3.5-5.1); Sodium 139 mmol/L (135-145); eGFR > 60.00
--- NOTE | 2025-04-04 06:17 | PTCARENOTE ---
Patient transferred to IMU
--- NOTE | 2025-04-04 06:40 | PTCARENOTE ---
Assumed care of Pt from M[employer]ICULT[employer] SERVICES LIBRARIAN. Pt AAOX3 spo2 97% RA. Call multani within reach.
[2025-04-04 07:20] LABS: Glucose - Point of Care 175 mg/dl (70-99)
[2025-04-04] MEDS: NSS (PRESERVATIVE FREE) 10 ML IV (08:38)
[2025-04-04] MEDS: PROTONIX IV 40 MG IV (08:38)
[2025-04-04 08:48] LABS: Troponin I < 0.012 ng/ml
--- NOTE | 2025-04-04 09:26 | W.PN.HOSP.TC ---
Today's Communication/Plan
-
Likely discharge in a.m.
Acid reflux treatment
As needed Ativan
Echocardiogram
Assessment / Plan
Assessment / Plan
Physical Exam
General: Well Developed, Well Nourished, not in distress
HEENT: NormoCephalic, Moist mucous membranes, Atraumatic.
Respiratory: Clear and Non Labored Respirations
Cardiac: S1/S2 and Regular Rhythm.
GI: Soft, Non Tender, Non Distended and Normal Bowel Sounds.
Genito-urinary: No Bellamy.
Musculoskeletal: No Clubbing, No Cyanosis and No Edema
Skin: Warm.
Neuro: Awake, AO x 3 and Nonfocal/grossly intact
Psych: Calm and Intact Judgment/Insight
A/P:
# Acute Epiglottitis.
causing Sepsis POA with tachycardia, hypotension, elevated neutrophil, low lymphocytes, could be viral in origin
Feeling better overall, tolerated liquid, no significant sore throat
c/w IV steroid decrease the dose and taper,
c/w IV Unasyn
Reportedly had negative strep test in urgent care
Negative flu & COVID
Blood culture negative so far
Afebrile
c/w supportive care will advance to soft diet
Appreciate ICU/ENT/ID help
# Heartburn/acid reflux/GERD, will give IV Protonix, likely induced by steroids
# Emotional liability was some anxiety, could be exacerbated by acute illness and high-dose steroids. Will give as needed Ativan
Patient is counseled regarding potential side effects of steroids and she verbalized understanding
# She reported feeling of chest discomfort/fatigue upon standing or walking
Started troponin is negative. Will check echocardiogram. Heart examination is normal.
# Simus tachycardia, reactive
# Hypotension, septic shock
Resolved
Total time spent to see the patient, examine the patient, review data lab result, discuss treatment plan with patient, nursing staff around 55 minutes
Anticipated Discharge: Within 24 hours
Subjective/Interval History
-
Date of Service: April 04, 2025
She feels fatigue mostly on standing
She had heartburn
tearful earlier
Less sore throat, tolerated lqiuids
Objective Data
-
Labs:
Laboratory Results
04/04/25
04:40
WBC 10.9 H
Hgb 11.2 L
Hct 33.6 L
Plt Count 236
Sodium 139
Potassium 4.4
Chloride 112 H
Carbon Dioxide 21 L
BUN 14
Creatinine 0.5 L
Glucose 140 H
Calcium 8.9
Vital Signs:
Vital Signs
Temp Pulse Resp BP Pulse Ox
97.8 F 79 19 124/88 100
04/04/25 07:30 04/04/25 05:00 04/04/25 05:00 04/04/25 04:00 04/04/25 05:00
I&O
04/03/25 04/04/25 04/05/25
06:59 06:59 06:59
Intake Total 1959 4250 / 4250
Output Total 300 / 300 2425 / 2425
Balance 1660 / 1760 1825 / 1825
--- NOTE | 2025-04-04 09:45 | W.PN.ID1 ---
Date of Service
Date of Service: April 04, 2025
Today's Communication
- IV antibiotics to continue as she still has dysphagia; eventual transition to orals for a 7-10 day course.
Assessment / Plan
Acute Epiglottitis without abscess
- agree with present management - unasyn, steroids and racemic epinephrine
- steroid management per ENT
- IV antibiotics to continue as she still has dysphagia; eventual transition to orals for a 7-10 day course.
Chief Complaint
-: Other (epiglottitis)
Subjective / Review of Systems
afebrile
bp stable
dysphagia ongoing, able to swallow some eggs when dipped in yougurt
Vital Signs / Physical Exam
Vital Signs
Vital Signs
Temp Pulse Resp BP Pulse Ox
97.8 F 79 19 124/88 100
04/04/25 07:30 04/04/25 05:00 04/04/25 05:00 04/04/25 04:00 04/04/25 05:00
Physical Exam
Constitutional: No Acute Distress
Cardiovascular: Regular Rate and S1/S2; Negative Murmur or Rub
Pulmonary: Clear and Symmetric; Negative Wheezes or Rales
Gastrointestinal: Soft, Non Tender, Non Distended and Normal Bowel Sounds
Skin: Warm and Dry; Negative Rash or Jaundice
Objective Data
Lab Data
Lab Results
04/04/25 04:40
04/04/25 04:40
PT 14.7 Sec (11.4-14.6) H 04/02/25 15:58
INR 1.12 04/02/25 15:58
APTT 28.8 Sec (23.4-35.0) 04/02/25 15:58
Estimated Creat Clear 103 ml/min 04/04/25 04:40
Total Bilirubin 0.7 mg/dl (0.2-1.3) 04/02/25 08:56
AST 19 U/L (14-36) 04/02/25 08:56
ALT 17 U/L (0-35) 04/02/25 08:56
Alkaline Phosphatase 56 U/L (38-126) 04/02/25 08:56
Most recent labs reviewed.
Micro Results:
04/03/25 09:31 Blood Culture - Preliminary
Blood/Venous No Growth in 24 hours- Final report to follow
04/02/25 11:49 Influenza Types A & B (GELY) - Final
Nasal Swab Negative for Influenza A & B, NAAT
Negative results must be combined with clinical observations
and patient history.
Nucleic Acid Amplification test (NAAT)performed on the
[employer] platform.
[2025-04-04] MEDS: NSS IV (10:05)
--- NOTE | 2025-04-04 11:30 | CM ---
Following up on Patient. Medical Notes states that patient has Acute Epiglottitis without abscess, still on IV antibiotics, plans to transition to oral at some point, but still has dysphasia. PT/OT has not evaluated the patient yet.
PLAN: TBD, Anticipate Home No Need
[2025-04-04 11:52] LABS: Glucose - Point of Care 132 mg/dl (70-99)
--- NOTE | 2025-04-04 11:59 | W.PN.UPDATE ---
Update Note
Progress Note Update
Pt feeling better
[place] po liquid, still some trouble with solids
No resp c/o
Afeb
No trismus, neck exam negative
A/P Epiglottitis
Clinically improving
Would d/c steroids
Continue IV Unasyn
Possible d/c on po Augmentin 875 BID tomorrow or Wednesday depending on clinical picture
--- NOTE | 2025-04-04 12:30 | W.PN.PUL3 ---
Today's Communication / Plan
-
Cont. With current care
Advance diet
Steroids to be DC
ABX
Will sign off.
Assessment
-
Patient is a 44-year-old F with no significant PMH who presents with sore throat and flu�like symptoms c/b acute worsening of dysphagia & dyspnea, found to have acute epiglottitis. Admitted to ICU for airway monitoring.
Transferred to floor and pulmonary following on 04/04/2025
#1. Acute Epiglottitis.
- CT reviewed, concern for abscess abutting right aryepiglottic fold along with cervical lymphadenopathy
- ENT service on case. Laryngoscopy consistent with Acute Epiglottitis
-
Clinically improved
No stridor on exam.
Tolerating soft diet
Not on supplemental oxygen.
ENT correspondence reviewed - steroids to be DC
Cont. ABX
Cont PRN analgesion
PRN Racemic epi
-
No additional pulmonary recommendations.
Sign off.
Hopefully DC in next 24hr.

Data:
CT Neck 03/2025: 15 x 14 x 12 mm low attenuation focus inferior to the epiglottis abutting the right aryepiglottic fold suspicious for abscess. Associated effacement/stranding of the right parapharyngeal fat with several mildly enlarged/reactive
cervical chain lymph nodes.
-
Subjective Data
-
Date of Service:
Date of Service: April 04, 2025
Chief Complaint: Pulmonary Follow Up (Epiglotitis/Dyspnea)
Subjective:
Feels better.
Tolerated soft diet
Denies dyspnea or chest pain.
Review of Systems
Cardiopulmonary: Dyspnea (n) and Cough (n)
Objective Data
Data Reviewed
Vital Signs / I&O / Oxygen:
Vital Signs
Temp Pulse Resp BP Pulse Ox
97.8 F 103 23 118/89 97
04/04/25 07:30 04/04/25 10:00 04/04/25 10:00 04/04/25 10:00 04/04/25 10:00
Intake and Output
04/03/25 04/04/25 04/05/25
06:59 06:59 06:59
Intake Total 1960 / 2059 4250 / 4250
Output Total 300 / 300 2425 / 2425
Balance 1660 / 1760 1825 / 1825
SaO2 97
Physical Exam
General: Comfortable
HEENT: Normocephalic and Other (No stridor on exam.)
Cardiovascular: S1-S2
Respiratory: Non-Labored Respirations
GI: Soft and Non Distended
Neurology: Awake and Alert
Skin: Warm
Labs/Micro/Reports
Lab Data
04/04/25 04:40
04/04/25 04:40
Microbiology
04/03/25 09:31 Blood/Venous Blood Culture - Preliminary
No Growth in 24 hours- Final report to follow
04/02/25 11:49 Nasal Swab Influenza Types A & B (GELY) - Final
Negative for Influenza A & B, NAAT
Negative results must be combined with clinical observations
and patient history.
Nucleic Acid Amplification test (NAAT)performed on the
[employer] platform.
--- NOTE | 2025-04-04 13:45 | PTCARENOTE ---
Assumed care of patient this morning. She reports minimal pain to throat but still problems swallowing, upgraded to soft and bite sized diet. Only able to get yogurt down and felt like eggs were getting stuck, she voiced this to multiple physicians
at bedside today. Pt worried about protein intake, TT to and advised will add ensure to diet. Patient able to walk into bathroom with assistance just for IV pole and wires. Assessment, care and VS as charted.
[2025-04-04] MEDS: DECADRON 4 MG IV ×2 (15:28→19:56)
[2025-04-04] MEDS: TYLENOL ORAL SOLUTION 650 MG PO (21:57)
[2025-04-05] VITALS: BP 106/69
[2025-04-05] MEDS: HEPARIN 5000 UNITS SC (00:23)
[2025-04-05] MEDS: UNASYN IV ×2 (00:23→05:11)
[2025-04-05] MEDS: TUMS CHEWABLE TABLET 200 MG PO (00:23)
[2025-04-05 02:00] VITALS: BP 100/70
[2025-04-05 04:00] VITALS: BP 106/74
--- NOTE | 2025-04-05 04:36 | PTCARENOTE ---
assumed care of patient from previous rn. patient aaox3. Room air, Spo2 98%. PRN Tylenol given for headache. Patient walking into bathroom with x1 assist just due to wires. assessment and vitals as documented. call multani in reach.
[2025-04-05] MEDS: DECADRON 4 MG IV (05:10)
[2025-04-05 05:36] LABS: Hematocrit 30.8 % (37.0-47.0); Hemoglobin 10.4 g/dL (12.0-16.0); Mean Corp Hgb Conc. 33.8 g/dL (33.0-37.0); Mean Corpuscular Volume 82.4 fL (81.0-99.0); Platelet Count 253 10^3/uL (130-400); Red Cell Dist. Width 13.3 % (11.5-14.5)
[2025-04-05 06:00] VITALS: BP 114/79
[2025-04-05 06:03] LABS: Blood Urea Nitrogen 12 mg/dl (7-17); Calcium 9.0 mg/dl (8.4-10.2); Carbon Dioxide 24 mmol/L (22-30); Chloride 110 mmol/L (98-107); Estimated Creatinine Clearance 103 ml/min; Glucose 124 mg/dl (70-99); Potassium 4.2 mmol/L (3.5-5.1); Sodium 138 mmol/L (135-145); eGFR > 60.00
[2025-04-05 08:00] VITALS: BP 132/87
[2025-04-05] MEDS: NSS (PRESERVATIVE FREE) 10 ML IV (08:34)
[2025-04-05] MEDS: PROTONIX IV 40 MG IV (08:34)
[2025-04-05] MEDS: HEPARIN SC (08:35)
--- NOTE | 2025-04-05 09:33 | W.PN.ID1 ---
Date of Service
Date of Service: April 05, 2025
Today's Communication
- unasyn to be transitioned to augmentin today - for a 10 day total course 04/03- 04/12
- follow up with PCP
Assessment / Plan
Acute Epiglottitis without abscess
- steroids per primary team, note ent recommendation to stop
- unasyn to be transitioned to augmentin today - for a 10 day total course 04/03- 04/12
- follow up with PCP
Chief Complaint
-: Other (epiglottitis)
Subjective / Review of Systems
afebrile
bp stable
no complaints
Vital Signs / Physical Exam
Vital Signs
Vital Signs
Temp Pulse Resp BP Pulse Ox
97.8 F 67 12 114/79 97
04/05/25 07:59 04/05/25 06:00 04/05/25 06:00 04/05/25 06:00 04/05/25 06:00
Objective Data
Lab Data
Lab Results
04/05/25 05:19
04/05/25 05:19
PT 14.7 Sec (11.4-14.6) H 04/02/25 15:58
INR 1.12 04/02/25 15:58
APTT 28.8 Sec (23.4-35.0) 04/02/25 15:58
Estimated Creat Clear 103 ml/min 04/05/25 05:19
Total Bilirubin 0.7 mg/dl (0.2-1.3) 04/02/25 08:56
AST 19 U/L (14-36) 04/02/25 08:56
ALT 17 U/L (0-35) 04/02/25 08:56
Alkaline Phosphatase 56 U/L (38-126) 04/02/25 08:56
Most recent labs reviewed.
Micro Results:
04/03/25 09:31 Blood Culture - Preliminary
Blood/Venous No Growth in 24 hours- Final report to follow
04/02/25 11:49 Influenza Types A & B (GELY) - Final
Nasal Swab Negative for Influenza A & B, NAAT
Negative results must be combined with clinical observations
and patient history.
Nucleic Acid Amplification test (NAAT)performed on the
[employer] platform.
--- NOTE | 2025-04-05 09:45 | PTCARENOTE ---
Assumed care of patient this morning. She reports minimal pain to throat but is worried about her swallowing still. Would like to go home today but will need to prove she can swallow oral antibiotics. Assessment, care and VS as charted.
--- NOTE | 2025-04-05 10:00 | W.PN.HOSP.TC ---
Today's Communication/Plan
-
dc
Assessment / Plan
Assessment / Plan
Physical Exam
General: Well Developed, Well Nourished, not in distress
HEENT: NormoCephalic, Moist mucous membranes, Atraumatic.
Respiratory: Clear and Non Labored Respirations
Cardiac: S1/S2 and Regular Rhythm.
GI: Soft, Non Tender, Non Distended and Normal Bowel Sounds.
Genito-urinary: No Bellamy.
Musculoskeletal: No Clubbing, No Cyanosis and No Edema
Skin: Warm.
Neuro: Awake, AO x 3 and Nonfocal/grossly intact
Psych: Calm and Intact Judgment/Insight
A/P:
# Acute Epiglottitis.
causing Sepsis POA with tachycardia, hypotension, elevated neutrophil, low lymphocytes, could be viral in origin
Feeling better overall,, no difficulty swallowing or sore throat
c/w IV steroid decrease the dose and taper as oral.
c/w IV Unasyn
Reportedly had negative strep test in urgent care
Negative flu & COVID
Blood culture negative so far
Afebrile
Advanced to regular diet
Appreciate ICU/ENT/ID help
# Heartburn/acid reflux/GERD, c/w PPI
# Emotional liability was some anxiety, could be exacerbated by acute illness and high-dose steroids.
Mood is better, pleasant, not anxious.
# She reported feeling of chest discomfort/fatigue upon standing or walking
Started troponin is negative. Normal echo Heart examination is normal.
# Simus tachycardia, reactive
# Hypotension, septic shock
Resolved
Total discharge time spent to see the patient, examine the patient, review data lab result, discuss discharge plan with patient, nursing staff around 65 minutes
Anticipated Discharge: Today
Subjective/Interval History
-
Date of Service: April 05, 2025
No chest pain
No sob
No abd pain
Objective Data
-
Labs:
Laboratory Results
04/05/25
05:19
WBC 8.5
Hgb 10.4 L
Hct 30.8 L
Plt Count 253
Sodium 138
Potassium 4.2
Chloride 110 H
Carbon Dioxide 24
BUN 12
Creatinine 0.5 L
Glucose 124 H
Calcium 9.0
Vital Signs:
Vital Signs
Temp Pulse Resp BP Pulse Ox
97.8 F 86 13 132/87 98
04/05/25 07:59 04/05/25 09:00 04/05/25 08:00 04/05/25 08:00 04/05/25 08:35
I&O
04/04/25 04/05/25 04/06/25
06:59 06:59 06:59
Intake Total 4250 / 4250
Output Total 2425 / 2425
Balance 1825 / 1825
--- NOTE | 2025-04-05 11:25 | CM ---
Met with patient at bedside; reported her mother will provide transport home
Plan: Discharge to home today; no needs
[2025-04-05] MEDS: AUGMENTIN 875 MG/125 MG 1 TABLET PO (11:29)
[2025-04-05 13:27] VITALS: BP 112/75
--- NOTE | 2025-04-05 15:03 | W.DCSUMMARY ---
Discharge Summary
Discharge Data
Date of Admission: 04/02/25
Date of Discharge: 04/05/25
-
Pending Results: No
Hospital Course
44 years old female with a history of several days of a severe sore throat mainly on the right side. She saw Urgent Care, was placed on Augmentin, but the symptoms persist and became very difficult to swallow but no
shortness of breath. Chest x ray with no acute findings. CT neck showed acute epiglottitis, but no abscess. Patient was admitted to the ICU for close observation and airway protection. ENT doctor evaluated the patient and she underwent flexible
fiberoptic laryngoscopy, findings consistent with acute epiglottitis. Patient was placed on intravenous antibiotic, intravenous steroid and as needed racemic epinephrine. Patient started to improve slowly. She was followed by pulmonary doctor and
ID doctors also blood culture did not show any growth. Negative COVID and influenza toxin. Patient reported that she had negative Streptococcus test. Diet was advanced slowly. Patient was able to tolerate diet with no nausea or vomiting.
Patient reported palpitation and fatigue. Echocardiogram showed normal left ventricular function with mild tricuspid regurgitation. Negative troponin. Patient did not have fever. She was able to tolerate oral tablets. Patient was discharged on
lower dose of oral steroid in addition to finish the course of antibiotic with Augmentin. She was given prophylactic Protonix for heartburn. Patient was discharged home in stable condition.
Discharge Plan
-
Patient Disposition: Home (Routine Discharge)
Discharge Diagnosis/Procedures: Acute Epiglottitis without abscess.
You were followed by ENT, ID, ENT doctors. You received intravenous steroids with intravenous antibiotics.
Blood culture did not show any growth. Last day for Augmentin 04/12.
Diet: As tolerated
Referrals:
HECTOR MACDONALD DO [Family Provider, Family Practice] - in one to two weeks
Raheel Shabazz MD [Active, Otology]
Referral Note: As needed
Prescriptions:
New
pantoprazole [Protonix] 40 mg tablet,delayed release (DR/EC)
40 mg PO DAILY Qty: 10 0RF
dexamethasone 4 mg tablet
2 mg PO BID Qty: 6 0RF
Continued
amoxicillin-pot clavulanate 875-125 mg Tablet
1 tab PO BID
Rx Instructions:
for 7 days starting 04/01/25
Advil Cold and Sinus 30-200 mg Capsule
1 cap PO BIDPRN PRN (Reason: mild pain)
Discharge Orders:
Discharge Patient (As Directed); Ordered 04/05/25
Ordered By: Derrell Grove
Discharge Date and Time
Discharge Date/Time: 04/05/25 14:26
Print Language: YAKUT
== END 2025-04-05 14:26 | disposition home or self-care (01) | DRG 871 ==
LOC: IMU 13:28
PROVIDERS: Nurse Practitioner Family; Nurse Practitioner Primary Care; Physician Assistant; Student in an Organized Health Care Education/Training Program; ADMITTING PHYSICIAN Internal Medicine; ATTENDING PHYSICIAN Internal Medicine; CONSULT PHYSICIAN Internal Medicine; EMERGENCY PHYSICIAN Emergency Medicine; FAMILY PHYSICIAN Family Medicine; OTHER PHYSICIAN Otolaryngology; OTHER PHYSICIAN Student in an Organized Health Care Education/Training Program
PROC: 0CJS8ZZ Inspection of Larynx, Via Natural or Artificial Opening Endoscopic (ICD-10-PCS; 2025-04-02)
DX: A41.9 Sepsis, unspecified organism (principal); R65.21 Severe sepsis with septic shock; J05.10 Acute epiglottitis without obstruction; N80.9 Endometriosis, unspecified; G43.909 Migraine, unspecified, not intractable, without status migrainosus; E28.2 Polycystic ovarian syndrome; K21.9 Gastro-esophageal reflux disease without esophagitis; Z88.1 Allergy status to other antibiotic agents; Z11.52 Encounter for screening for COVID-19
CPT/HCPCS: 70491; 71045; 80048; 80053; 82962; 83735; 84100; 84484; 84703; 85025; 85027; 85610; 85730; 86308; 87040; 87502; 87811; 93005; 93306; 94640; 96361; 96374; 96375; 96376; 99285; Q9967